=== PATIENT | male | born 1995 | race African-American/Black ===

== ENCOUNTER → 2022-12-18 | Day surgery (SDC) | payer OTHER ==
[~2022-12-18] MED LIST: FENTANYL CITRATE/PF 100MCG/2 ML INJ ONE; LACTATED RINGER'S 1,000 ML ONE; LIDOCAINE HCL 2% LOCAL INJ 5 ML SDV VIAL INJ ONE; MIDAZOLAM HCL 2 MG/2 ML VIAL ONE; PROPOFOL IV EMULSION 10 MG/ML 50 ML VIAL IV ONE
[2022-12-18 17:03] VITALS: BP 103/56; PULSE 78; RESP 16; O2SAT 99
== END | disposition home or self-care (01) ==
LOC: OR 11:47
PROVIDERS: ATTEND Internal Medicine Gastroenterology
DX: K29.50 Unspecified chronic gastritis without bleeding (principal); Z86.19 Personal history of other infectious and parasitic diseases; K20.90 Esophagitis, unspecified without bleeding; K31.89 Other diseases of stomach and duodenum
CPT/HCPCS: 43239; 88305; 88342; J2001; J2250